=== PATIENT | male | born 1945 | race Caucasian/White ===

== ENCOUNTER 2020-09-02 18:07 | Inpatient (IN) ==
[2020-09-02] MEDS ORDERED: ACETAMINOPHEN 325 MG TAB PO PRN (22:06)
[2020-09-02] MEDS ORDERED: HYDROmorphone INJ 0.5 MG/0.5 ML SYR IV PRN (22:08)
[2020-09-02] MEDS ORDERED: traMADol HCL 50 MG TABLET PO PRN (22:08)
[2020-09-02] MEDS ORDERED: PROMETHAZINE HCL 12.5 MG in SODIUM CHLORIDE 0.9% 50 ML IV PRN (22:08)
[2020-09-02] MEDS ORDERED: NITROGLYCERIN SL 0.4 MG/TAB TAB SL PRN (22:12)
[2020-09-02] MEDS ORDERED: amLODIPine BESYLATE 5 MG TAB PO ONE (22:14)
[2020-09-02 22:55] LABS: Basophils # (auto) 0.04 K/uL (0-0.2); Basophils % (auto) 0.5 %; Eosinophils % (auto) 2.6 %; Hematocrit (blood only) 44.7 % (42-52); Hemoglobin 15.1 g/dL (14.0-18.0); Immature Granulocytes # (auto) 0.01 K/uL (0.00-0.02); Immature Granulocytes % (auto) 0.1 %; Lymphocytes # (auto) 2.16 K/uL (1.2-3.4); Lymphocytes % (auto) 27.8 %; Mean Corpuscular Hemoglobin 30.1 pg (25-34); Mean Corpuscular Hgb Conc 33.8 g/dL (32-36); Mean Corpuscular Volume 89.2 fL (80-100); Mean Platelet Volume 9.9 fL (7.4-10.4); Monocytes # (auto) 0.92 K/uL (0.11-0.59); Monocytes % (auto) 11.8 %; Neutrophils # (auto) 4.44 K/uL (1.4-6.5); Neutrophils % (auto) 57.2 %; Platelet Count 135 K/uL (130-400); RDW Coefficient of Variation 13.5 % (11.5-14.5); RDW Standard Deviation 43.8 fL (36.4-46.3); Red Blood Count 5.01 M/uL (4.7-6.1); White Blood Count 7.77 K/uL (4.8-10.8)
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
[2020-09-02 23:05] LABS: Partial Thromboplastin Ratio 0.9; Partial Thromboplastin Time 24.9 Seconds (21.0-31.0)
[2020-09-02 23:20] LABS: BUN Creatinine Ratio 12.3 (10-20); Calcium 8.7 mg/dl (8.5-10.1); Creatinine Clr Calc Pharmacy 37.9 ml/min; Est GFR (African American) 48.5; Est GFR (Non-African American) 41.8; Magnesium 2.3 mg/dl (1.8-2.4); Potassium 4.1 mmol/L (3.5-5.1)
[2020-09-02 23:37] LABS: Thyroid Stimulating Hormone 5.03 uIu/ml (0.300-4.500); Troponin I 0.503 ng/ml (0-0.045)
[2020-09-03 00:26] LABS: Appearance Urine Clear (Clear); Bacteria Urine Automated Negative (Negative); Bilirubin Urine Negative (Negative); Blood Urine Negative (Negative); Cast Urine Automated 0 /lpf (0-5); Color Urine Yellow; Glucose Urine UA Negative (Negative); Ketones Urine Negative (Negative); Leukocyte Esterase Urine Trace (Negative); Nitrite Urine Negative (Negative); Protein Urine Negative (Negative); RBC Urine Automated 0-4 /hpf (0-4); Specific Gravity Urine 1.013 (1.000-1.030); Urobilinogen Urine Negative (Negative)
[2020-09-03] MEDS: ALBUMIN 25% 12.5 GM/50 ML VIAL IV SCH ×2 (00:49→01:04)
[2020-09-03] MEDS: Heparin IV Adult Wt-Based Low-Dose *NO* Bolus Protocol IV SCH ×3 (01:08→10:34)
[2020-09-03] MEDS: HEPARIN SODIUM/DEXTROSE 25,000 UNITS/500 ML BAG IV SCH (01:15)
[2020-09-03 07:38] LABS: Basophils # (auto) 0.04 K/uL (0-0.2); Basophils % (auto) 0.6 %; Eosinophils # (auto) 0.23 K/uL (0-0.5); Eosinophils % (auto) 3.2 %; Hematocrit (blood only) 41.9 % (42-52); Hemoglobin 14.1 g/dL (14.0-18.0); Immature Granulocytes # (auto) 0.01 K/uL (0.00-0.02); Immature Granulocytes % (auto) 0.1 %; Lymphocytes # (auto) 1.77 K/uL (1.2-3.4); Lymphocytes % (auto) 24.5 %; Mean Corpuscular Hemoglobin 30.3 pg (25-34); Mean Corpuscular Hgb Conc 33.7 g/dL (32-36); Mean Corpuscular Volume 89.9 fL (80-100); Mean Platelet Volume 10.7 fL (7.4-10.4); Monocytes # (auto) 0.81 K/uL (0.11-0.59); Monocytes % (auto) 11.2 %; Neutrophils # (auto) 4.35 K/uL (1.4-6.5); Neutrophils % (auto) 60.4 %; Platelet Count 146 K/uL (130-400); RDW Coefficient of Variation 13.6 % (11.5-14.5); RDW Standard Deviation 44.4 fL (36.4-46.3); Red Blood Count 4.66 M/uL (4.7-6.1); White Blood Count 7.21 K/uL (4.8-10.8)
[2020-09-03 07:55] LABS: Partial Thromboplastin Ratio 1.3; Partial Thromboplastin Time 35.1 Seconds (21.0-31.0)
[2020-09-03 08:04] LABS: BUN Creatinine Ratio 14.4 (10-20); Calcium 8.6 mg/dl (8.5-10.1); Creatinine Clr Calc Pharmacy 44.1 ml/min; Est GFR (African American) 58.5; Est GFR (Non-African American) 50.4; Potassium 3.9 mmol/L (3.5-5.1)
[2020-09-03] MEDS ORDERED: HEPARIN SOD (PORCINE) 1000 UNIT/ML IV STA (08:13)
[2020-09-03 08:22] LABS: Troponin I 0.436 ng/ml (0-0.045)
[2020-09-03] MEDS ORDERED: HEPARIN IV BOLUS 3,000 UNITS in SYRINGE 0 ML IV SCH (08:45)
[2020-09-03] MEDS: amLODIPine BESYLATE 5 MG TAB PO SCH (08:58)
[2020-09-03] MEDS: SODIUM CHLORIDE 0.9% 1000ML 1,000 ML IV SCH (08:59)
[2020-09-03] MEDS: AMIODARONE 200 MG TAB PO SCH ×3 (08:59→09:20)
[2020-09-03] MEDS: ASPIRIN 81 MG ECTAB PO SCH (08:59)
[2020-09-03] MEDS: METOPROLOL SUCC 50MG EXT REL TAB PO SCH ×2 (09:00→09:21)
[2020-09-03 09:29] LABS: Influenza A virus by PCR Negative (Neg); Influenza B virus by PCR Negative (Neg); RSV by PCR Negative (Neg)
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
--- NOTE | 2020-09-03 09:40 | Pre Anesthesia Assessment ---
Date of Service September 03, 2020 Pre Sedation Assessment Vital Signs Temp Pulse Pulse Pulse Resp BP Pulse Ox 09/03/20 07:26 36.6 C 47 L 17 153/75 H 94 09/03/20 07:00 49 L 09/03/20 03:40 36.6 C 48 L 16 140/78 92 09/03/20 00:36 53 L 09/02/20 23:30 36.8 C 47 L 18 133/72 93 09/02/20 21:50 37 C 54 L 18 175/86 H 96 Pre-Sedation Airway Assessment Smoking Status: Never smoker Notes The planned sedation has been discussed with the patient. Informed Consent was obtained. I have identified the patient, determined the appropriateness of sedation and have assessed the patient immediately prior to the procedure. All medicine(s) and interventions are by my order.
[2020-09-03 09:44] LABS: SARS CoV2 RNA(COVID-19) InHosp POSITIVE (Negative)
--- NOTE | 2020-09-03 11:15 | XRay Report ---
XR chest 1V portable HISTORY: Shortness of breath. COVID COMPARISON: None. FINDINGS: Small patchy airspace opacity within the lateral base of the left lower lobe. Otherwise, th e lungs are clear. The heart is borderline enlarged. No pleural effusions. No pneumothorax. Is left-s ided single lead pacemaker/defibrillator. IMPRESSION: Small patchy airspace opacity within the lateral base of the left lower lobe. This may represent atel ectasis or a pneumonia. ACT 112: Negative or not required by law. Electronically signed by: Ottoniel Rios M.D. 09/03/2020 11:14 AM
[2020-09-03 15:56] LABS: Partial Thromboplastin Ratio 1.8
[2020-09-03] MEDS: ATORVASTATIN 40 MG TAB PO SCH (16:04)
[2020-09-03 16:22] LABS: Partial Thromboplastin Time 47.9 Seconds (21.0-31.0)
--- NOTE | 2020-09-03 16:32 | Hospitalist Progress Note ---
Date of Service September 03, 2020 Assessment & Plan (1) NSTEMI (non-ST elevation myocardial infarction): NSTEMI New LBBB H/O CAD, Chronic Systolic heart failure H/O cardiac arrest/VT S/P ICD Ischemic Cardiomyopathy Troponin elevation Continue aspirin, Lipitor, metoprolol Continue IV heparin Appreciate cardiology input Planned for cardiac cath COVID 19 Pneumonia Positive COVID Screen Asymptomatic Saturating well on room air No treatment indicated currently Hypertension BP elevated Continue current medication Ventricular Fibrillation Sinus bradycardia Continue amiodarone, metoprolol as per your transfer specialist Monitor on telemetry Hyperlipidemia on statin Acute Kidney Injury Cr:1.6>1.37 Continue IV fluids Pulmonary nodules on CT Incidental finding Follow up as outpatient with repeat CT in 12 months DVT Px: IV heparin Code Status Full code Admission and Anticipated Discharge Date Admission Date: September 02, 2020 Subjective Patient is seen and examined at bedside States feeling better today Denies any chest pain, dyspnea, dizziness, shortness of breath Saturating well on room air Also denies any cough Offers no other complaints Review of Systems Review of Systems: All systems reviewed & are unremarkable except as noted in HPI & below Physical Exam Physical Exam: Physical Exam: Vitals signs as noted above General Appearance:Moderately built and nourished, no apparent distress Head: normocephalic, Atraumatic Eyes: normal inspection, EOMI Neck: supple, Trachea midline Respiratory/Chest: Normal breath sounds, CTA, No accessory muscle use Cardiovascular: S1, S2, No murmur, +Bradycardia Abdomen/GI:Soft, Non tender, Bowel sounds present Extremities/Musculoskelatal:normal inspection, no edema Neurologic/Psych:AAOX3, grossly no focal neurological deficits Skin: normal color, warm Results & Data Results & Data ([facility]) Vital Signs (Past 12 Hours) Vital Signs Temp Pulse Pulse Pulse Resp BP BP 09/03/20 15:34 36.8 C 51 L 18 166/78 H 09/03/20 10:31 49 L 09/03/20 07:26 36.6 C 47 L 17 153/75 H 09/03/20 07:00 49 L Pulse Ox 09/03/20 15:34 94 09/03/20 10:31 09/03/20 07:26 94 09/03/20 07:00 Laboratory Results Short CBC 09/02/20 09/03/20 Range/Units 22:43 06:58 WBC 7.77 7.21 (4.8-10.8) K/uL Hgb 15.1 14.1 (14.0-18.0) g/dL Hct 44.7 41.9 L (42-52) % Plt Count 135 146 (130-400) K/uL BMP 09/02/20 09/03/20 22:43 06:58 Sodium 141 140 Potassium 4.1 3.9 Chloride 109 H 109 H Carbon Dioxide 27 26 BUN 20 H 20 H Creatinine 1.60 H 1.37 Glucose 103 H 90 Calcium 8.7 8.6 Cardiac Enzymes 09/02/20 09/03/20 Range/Units 22:43 06:58 Troponin I 0.503 H* 0.436 H* (0-0.045) ng/ml Urine 09/03/20 Range/Units 00:10 Urine Color Yellow Urine Appearance Clear (Clear) Urine pH 6.0 (4.5-7.5) Ur Specific [place] 1.013 (1.000-1.030) Urine Protein Negative (Negative) Urine Glucose (UA) Negative (Negative)
[2020-09-04] MEDS: HEPARIN SODIUM/DEXTROSE 25,000 UNITS/500 ML BAG IV SCH (03:03)
[2020-09-04] MEDS: SODIUM CHLORIDE 0.9% 1000ML 1,000 ML IV SCH ×2 (06:31→14:27)
[2020-09-04 06:44] LABS: Hematocrit (blood only) 41.2 % (42-52); Hemoglobin 14.2 g/dL (14.0-18.0); Mean Corpuscular Hemoglobin 30.7 pg (25-34); Mean Corpuscular Hgb Conc 34.5 g/dL (32-36); Mean Platelet Volume 10.3 fL (7.4-10.4); Platelet Count 143 K/uL (130-400); RDW Coefficient of Variation 13.5 % (11.5-14.5); RDW Standard Deviation 43.4 fL (36.4-46.3); Red Blood Count 4.63 M/uL (4.7-6.1); White Blood Count 6.79 K/uL (4.8-10.8)
[2020-09-04 06:51] LABS: Partial Thromboplastin Ratio 1.7; Partial Thromboplastin Time 44.3 Seconds (21.0-31.0)
[2020-09-04 07:18] LABS: BUN Creatinine Ratio 16.3 (10-20); Calcium 8.3 mg/dl (8.5-10.1); Creatinine Clr Calc Pharmacy 46.9 ml/min; Est GFR (African American) 61.2; Est GFR (Non-African American) 52.8; Magnesium 2.3 mg/dl (1.8-2.4); Potassium 3.8 mmol/L (3.5-5.1)
[2020-09-04 07:29] LABS: T4 Free Thyroxine 1.29 ng/dl (0.8-1.6); Thyroid Stimulating Hormone 3.65 uIu/ml (0.300-4.500)
[2020-09-04] MEDS: METOPROLOL SUCC 50MG EXT REL TAB PO SCH (08:28)
[2020-09-04] MEDS: ASPIRIN 81 MG ECTAB PO SCH (08:28)
[2020-09-04] MEDS: amLODIPine BESYLATE 5 MG TAB PO SCH (08:29)
[2020-09-04] MEDS: AMIODARONE 200 MG TAB PO SCH (08:29)
--- NOTE | 2020-09-04 08:59 | Cardiology Progress Note ---
Date of Service September 04, 2020 Assessment & Plan (1) NSTEMI (non-ST elevation myocardial infarction): This patient was originally admitted to [facility] with heart failure and chest pain. He did have an increase in his cardiac troponins and was transferred here to have a cardiac catheterization completed. Unfortunately, the patient had a negative Covid test in [place] but when he arrived here the test was repeated and it was positive. Patient was sent to the Covid unit. He is completely asymptomatic in regard to any viral illness. I think we should proceed with the cardiac catheterization to move the patient along. It will be done as the last case and the room can be clean. Once the cardiac catheterization has been completed we can then further his care along. I have explained the risk, benefit and intent of the cardiac catheterization to the patient. He is currently willing to proceed and anxious to get it over with. Admission and Anticipated Discharge Date Admission Date: September 02, 2020 Subjective The patient had an uneventful night. He has been ambulating in his room. No shortness of breath. No evidence of hypoxia. No muscle aches, joint pains, headache or loss of taste. No fever. Review of Systems Review of Systems: All systems reviewed & are unremarkable except as noted in Subjective Physical Exam Physical Exam: General: no acute distress and stated age Head: normocephalic, no masses, lesions, tenderness or abnormalities Eyes: conjunctiva are pink and non-injected, sclera clear Neck: supple, no adenopathy, no bruits, normal jugular venous pulse, no hepatojugular reflux Chest: normal shape and normal respiratory effort Lungs: clear to auscultation and percussion Cardiac Exam: - regular rate & rhythm, no murmurs gallops or rubs - normal S1, normal S2 Pulses: 2(+) throughout Abdomen: abdomen soft, non-tender, no abnormal masses and no hepatosplenomegaly Musculoskeletal: no gait disturbance, no joint inflammation, no deforming arthritis Extremities: no edema and no cyanosis Neuro: grossly normal exam Results & Data ([facility]) Vital Signs (Past 12 Hours) Vital Signs Temp Pulse Resp BP BP Pulse Ox 09/04/20 08:24 36.6 C 48 L 18 160/58 H 94 09/04/20 02:48 36.8 C 48 L 14 128/68 93 09/03/20 23:28 36.6 C 50 L 16 124/70 95 Laboratory Results Laboratory Results - last 24 hr 09/03/20 09/03/20 09/04/20 08:25 15:08 06:06 WBC 6.79 RBC 4.63 L Hgb 14.2 Hct 41.2 L MCV 89.0 MCH 30.7 MCHC 34.5 RDW Std Deviation 43.4 RDW Coeff of Luciana 13.5 Plt Count 143 MPV 10.3 APTT 47.9 H* PTT Ratio 1.8 Sodium Potassium Chloride Carbon Dioxide Anion Gap BUN Creatinine Est Cr Clr Drug Dosing Est GFR ( Amer) Est GFR (Non-Af Amer) BUN/Creatinine Ratio Glucose Calcium Magnesium Procalcitonin TSH Free T4 SARS-CoV-2 (PCR) POSITIVE A* Influenza Type A (PCR) Negative Influenza Type B (PCR) Negative RSV (RT-PCR) Negative 09/04/20 09/04/20 09/04/20 06:06 06:06 06:06 WBC RBC Hgb Hct MCV MCH MCHC RDW Std Deviation RDW Coeff of Luciana Plt Count MPV APTT 44.3 H PTT Ratio 1.7 Sodium 142 Potassium 3.8 Chloride 112 H Carbon Dioxide 24 Anion Gap 6.0 BUN 22 H Creatinine 1.32 Est Cr Clr Drug Dosing 46.9 Est GFR ( Amer) 61.2 Est GFR (Non-Af Amer) 52.8 BUN/Creatinine Ratio 16.3 Glucose 91 Calcium 8.3 L Magnesium 2.3 Procalcitonin < 0.05 TSH 3.650 Free T4 1.29 SARS-CoV-2 (PCR) Influenza Type A (PCR) Influenza Type B (PCR) RSV (RT-PCR) Medications Administered Current Inpatient Medications Acetaminophen (Acetaminophen 325 Mg Tab) 650 mg PO Q4H PRN PRN Reason: Pain or Fever Stop: 10/02/20 22:05 Amiodarone HCl (Amiodarone 200 Mg Tab) 200 mg PO QAM [facility] Stop: 10/03/20 08:59 Last Admin: 09/04/20 08:29 Dose: 200 mg Documented by: Amlodipine Besylate (Amlodipine Besylate 5 Mg Tab) 2.5 mg PO DAILY [facility] Stop: 10/03/20 08:59 Last Admin: 09/04/20 08:29 Dose: 2.5 mg Documented by: Aspirin (Aspirin 81 Mg Ectab) 81 mg PO DAILY GRIS[facility] Stop: 10/03/20 08:59 Last Admin: 09/04/20 08:28 Dose: 81 mg Documented by: Atorvastatin Calcium (Atorvastatin 40 Mg Tab) 80 mg PO DAILY@1400 [facility] Stop: 10/03/20 13:59 Last Admin: 09/03/20 16:04 Dose: 80 mg Documented by: Hydromorphone HCl (Hydromorphone Inj 0.5 Mg/0.5 Ml Syr) 0.5 mg IV Q3H PRN PRN Reason: Pain Stop: 09/16/20 22:07 Promethazine HCl 12.5 mg/ (Sodium Chloride) 50.5 mls @ 202 mls/hr IV Q6H PRN PRN Reason: Nausea And Vomiting Stop: 10/02/20 22:07 Heparin Sodium/Dextrose (Heparin Sodium/Dextrose) 25,000 units in 500 mls @ 20 mls/hr IV .Q24H GRISELDA; Protocol Stop: 10/02/20 23:44 Last Titration: 09/04/20 06:57 Dose: 1,000 units/hr, 20 mls/hr Documented by: Sodium Chloride (Nss 1000ml) 1,000 mls @ 75 mls/hr IV .[id number] [facility] Stop: 10/03/20 08:29 Last Admin: 09/04/20 06:31 Dose: 75 mls/hr Documented by: Metoprolol Succinate (Metoprolol Succ 50mg Ext Rel Tab) 50 mg PO DAILY GRISELDA Stop: 10/03/20 08:59 Last Admin: 09/04/20 08:28 Dose: 50 mg Documented by: Nitroglycerin (Nitroglycerin Sl 0.4 Mg/Tab Tab) 0.4 mg SL PRN PRN PRN Reason: cp Stop: 10/02/20 22:11 Tramadol HCl (Tramadol Hcl 50 Mg Tablet) 25 - 50 mg PO Q4H PRN PRN Reason: Pain Stop: 10/02/20 22:07
[2020-09-04 13:36] LABS: Partial Thromboplastin Ratio 1.7; Partial Thromboplastin Time 44.1 Seconds (21.0-31.0)
[2020-09-04] MEDS ORDERED: MIDAZOLAM HCL 1 MG/ML 2ML VIAL ONE (15:00)
[2020-09-04] MEDS ORDERED: HEPARIN (PORCINE) 1000 UNIT/ML 10 ML (CATH LAB USE ONLY) ONE (15:00)
[2020-09-04] MEDS ORDERED: fentaNYL citrate 100 MCG/2 ML VIAL ONE (15:00)
[2020-09-04] MEDS ORDERED: niCARdipine HCL INJ 2.5 MG/ML 10 ML AMP ONE (15:00)
[2020-09-04] MEDS ORDERED: NITROGLYCERIN/D5W 100MCG/ML 20ML SYR ONE (15:01)
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
--- NOTE | 2020-09-04 16:28 | Hospitalist Progress Note ---
Date of Service September 04, 2020 Assessment & Plan (1) NSTEMI (non-ST elevation myocardial infarction): NSTEMI New LBBB H/O CAD, Chronic Systolic heart failure H/O cardiac arrest/VT S/P ICD Ischemic Cardiomyopathy Troponin elevation Continue aspirin, Lipitor, metoprolol Appreciate cardiology input Further management based on cardiac catheterization results On IV heparin COVID 19 Pneumonia Positive COVID Screen Asymptomatic Saturating well on room air No treatment indicated currently Hypertension BP elevated Continue current medication Ventricular Fibrillation Sinus bradycardia Continue amiodarone, metoprolol as per your childcare provider Monitor on telemetry Hyperlipidemia on statin Acute Kidney Injury Cr:1.6>1.37>1.32 Continue IV fluids Pulmonary nodules on CT Incidental finding Follow up as outpatient with repeat CT in 12 months DVT Px: On IV heparin Code Status Full code Admission and Anticipated Discharge Date Admission Date: September 02, 2020 Subjective Patient is seen and examined at bedside Offers no complaints this morning Denies chest pain, shortness of breath, cough, dizziness, nausea, abdominal pain Plan for cardiac catheterization today Saturating well on room air Review of Systems Review of Systems: All systems reviewed & are unremarkable except as noted in HPI & below Physical Exam Physical Exam: Physical Exam: Vitals signs as noted above General Appearance:Moderately built and nourished, no apparent distress Head: normocephalic, Atraumatic Eyes: normal inspection, EOMI Neck: supple, Trachea midline Respiratory/Chest: Normal breath sounds, CTA, No accessory muscle use Cardiovascular: S1, S2, No murmur, +Bradycardia Abdomen/GI:Soft, Non tender, Bowel sounds present Extremities/Musculoskelatal:normal inspection, no edema Neurologic/Psych:AAOX3, grossly no focal neurological deficits Skin: normal color, warm Results & Data Results & Data ([facility]) Vital Signs (Past 12 Hours) Vital Signs Temp Pulse Pulse Resp BP Pulse Ox 09/04/20 15:04 36.8 C 52 L 18 158/89 H 94 09/04/20 11:11 37.1 C 50 L 16 174/74 H 94 09/04/20 08:24 36.6 C 48 L 18 160/58 H 94 09/04/20 08:00 63 Laboratory Results Short CBC 09/04/20 Range/Units 06:06 WBC 6.79 (4.8-10.8) K/uL Hgb 14.2 (14.0-18.0) g/dL Hct 41.2 L (42-52) % Plt Count 143 (130-400) K/uL BMP 09/04/20 06:06 Sodium 142 Potassium 3.8 Chloride 112 H Carbon Dioxide 24 BUN 22 H Creatinine 1.32 Glucose 91 Calcium 8.3 L
[2020-09-04] MEDS: ATORVASTATIN 40 MG TAB PO SCH (16:32)
[2020-09-04 20:32] LABS: Partial Thromboplastin Ratio 1.5; Partial Thromboplastin Time 38.9 Seconds (21.0-31.0)
[2020-09-05] MEDS: HEPARIN SODIUM/DEXTROSE 25,000 UNITS/500 ML BAG IV SCH (04:13)
[2020-09-05 04:21] LABS: Hematocrit (blood only) 40.9 % (42-52); Hemoglobin 14.4 g/dL (14.0-18.0); Mean Corpuscular Hgb Conc 35.2 g/dL (32-36); Mean Corpuscular Volume 88.1 fL (80-100); Mean Platelet Volume 10.1 fL (7.4-10.4); Platelet Count 140 K/uL (130-400); RDW Coefficient of Variation 13.4 % (11.5-14.5); RDW Standard Deviation 43.2 fL (36.4-46.3); Red Blood Count 4.64 M/uL (4.7-6.1); White Blood Count 7.79 K/uL (4.8-10.8)
[2020-09-05 04:38] LABS: BUN Creatinine Ratio 13.7 (10-20); Calcium 8.4 mg/dl (8.5-10.1); Creatinine Clr Calc Pharmacy 45.9 ml/min; Est GFR (African American) 59.5; Est GFR (Non-African American) 51.4; Magnesium 2.4 mg/dl (1.8-2.4)
[2020-09-05 05:04] LABS: Partial Thromboplastin Time 52.5 Seconds (21.0-31.0)
--- NOTE | 2020-09-05 08:26 | XRay Report ---
XR chest 1V portable CLINICAL HISTORY: COVID COMPARISON STUDY: Chest radiograph September 03, 2020. FINDINGS: Lung volumes are normal. There is no pneumothorax or pleural effusion. Linear left basilar opacity has decreased. This favors atelectasis. No consolidation is identified. No evidence for pulmo nary edema. A single lead left subclavian pacer/AICD is in place. Borderline cardiomegaly is noted. N o evidence for pulmonary edema. IMPRESSION: No acute cardiopulmonary findings. ACT 112: Negative or not required by law. Electronically signed by: Rory Ibarra M.D. 09/05/2020 8:24 AM
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
[2020-09-05] MEDS: SODIUM CHLORIDE 0.9% 1000ML 1,000 ML IV SCH (09:52)
[2020-09-05] MEDS: ASPIRIN 81 MG ECTAB PO SCH (09:53)
[2020-09-05] MEDS: AMIODARONE 200 MG TAB PO SCH (09:54)
[2020-09-05] MEDS: METOPROLOL SUCC 50MG EXT REL TAB PO SCH (09:54)
[2020-09-05] MEDS: amLODIPine BESYLATE 5 MG TAB PO SCH (09:54)
[2020-09-05] MEDS: ATORVASTATIN 40 MG TAB PO SCH (13:54)
--- NOTE | 2020-09-05 14:32 | Electrocardiogram Report ---
Test Reason : Blood Pressure : / mmHG Vent. Rate : 041 BPM Atrial Rate : 041 BPM P-R Int : 198 ms QRS Dur : 122 ms QT Int : 530 ms P-R-T Axes : 026 -36 020 degrees QTc Int : 437 ms Marked sinus bradycardia Left axis deviation Non-specific intra-ventricular conduction delay Nonspecific ST and T wave abnormality Abnormal ECG No previous ECGs available Confirmed by Erasto Fink ([id number]) on 09/05/2020 2:32:17 PM Referred By: Neil Oscar Confirmed By:Erasto Fink
--- NOTE | 2020-09-05 15:04 | Hospitalist Progress Note ---
Date of Service September 05, 2020 Assessment & Plan (1) NSTEMI (non-ST elevation myocardial infarction): (1) NSTEMI (non-ST elevation myocardial infarction): cardiac cath reveals :severe three-vessel coronary artery disease including left main trunk Appreciate input from Cardiology , pt will need CABG Dr Snow discussed the case with cardiothoracic surgery at [facility]. pt is accepted to be transferred to [place] COVID19 positive status : no s/s of pneumonia, SOB or active disease no hypoxia , remains in R/A -no treatment indicated at present on negative pressure isolation room per protocol Hx of Vfib cardiac arrest /was terminated by ICD high risk for future cardiac event with out establishing reperfusion via CABG for severe CAD pt is continued with IV heparin , Aspirin no angina symptoms since admission Continue amiodarone, metoprolol Ischemic cardiomyopathy: Previous inferior myocardial infarction 2014. The estimated left ventricular ejection fraction is somewhere around 35 to 40%. chronic CHF with systolic dysfunction , vol status stable Acute renal failure on CKD stage 3 resolved after IV hydration Cr:1.6>1.37>1.32 Continue IV fluids Pulmonary nodules on CT Incidental finding Follow up as outpatient with repeat CT in 12 months DVT Px: On IV heparin Code Status Full code Disposition : pt is transferred to [facility], under CT surgery for CABG Admission and Anticipated Discharge Date Admission Date: September 02, 2020 Subjective follow up visit for NSTEMI : no complain of chest pain or SOB feels fine , vitals stable waiting for transfer to [facility] under CT surgery for further care /CABG has not had any episode of fever or chills, no cough Review of Systems Review of Systems: All systems reviewed & are unremarkable except as noted in Subjective Physical Exam Physical Exam: Physical exam: General: No acute distress, alert awake oriented x3 HEENT: PERRLA, EOMI, Heart: Regular S1-S2, no carotid bruit, no JVD, no lower extremity edema Lungs: Clear to auscultate, no wheeze or rales Abdomen: Soft nontender, no organomegaly Extremity: No cyanosis, no deformity, normal strength 5 out of 5 with upper and lower Neuro: No focal neurological deficit normal speech, normal visual field, Motor strength : normal both upper and lower extremity, sensation intact Psych: Alert awake oriented x3, normal affect Results & Data Results & Data ([facility]) Vital Signs (Past 12 Hours) Vital Signs Temp Pulse Pulse Pulse Resp BP Pulse Ox 09/05/20 11:26 36.7 C 50 L 18 135/72 95 09/05/20 08:00 45 L 09/05/20 07:54 36.9 C 48 L 18 144/75 H 96 09/05/20 04:02 36.5 C 50 L 16 131/83 93
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
--- NOTE | 2020-09-11 13:06 | Coding Query ---
To promote full compliance with coding requirements relating to patient care, provider participation is requested in all cases of social science manager uncertainty. Please assist us with the question(s) below: Coding Question(s): The diagnosis(es) below was documented in the (social science manager fill out source document ie H&P, progress notes, etc.) then subsequently fell off all further documentation. Please indicate if it is still a possible diagnosis or ruled out. Physician's Response(s): DECOMPENSATED HEART FAILURE - (documented on H&P) ( x ) Diagnosed and POA ( ) Diagnosed and not POA ( ) Ruled out ( ) Other (please specify) PNEUMONIA - (H&P says "Patient brought to [facility] for evaluation. Found to have right lower lobe infiltrate. Given Ceftriaxone and Doxycycline", and Progress Notes 09/03 & 09/04 document, "COVID 19 Pneumonia Positive COVID Screen Asymptomatic", then 09/05 Progress Note and Discharge Summary say, "COVID19 positive status : no s/s of pneumonia".) ( x ) Diagnosed and POA ( ) Diagnosed and not POA ( ) Ruled out ( ) Other (please specify) MTDD
== END 2020-09-05 20:55 | disposition short-term general hospital (02) | DRG 280 ==
LOC: 2S 21:45 → SUATTDRO 22:07 → 2E 09-03 09:56